=== PATIENT | male | born 1970 | race Caucasian/White ===

== ENCOUNTER 2019-07-25 22:56 | Inpatient (IN) | payer SELFPAY ==
[2019-07-25] MEDS ORDERED: LORAZEPAM INJ 2 MG/1 ML VIAL IV ONE (23:42)
[2019-07-25 23:48] LABS: ABSOLUTE LYMPHOCYTES (AUTO) 0.3 10^3/uL (0.5-4.7); ABSOLUTE MONOCYTES (AUTO) 0.3 10^3/uL (0.1-1.4); ABSOLUTE NEUT (AUTO) 4.1 10^3/uL (1.7-8.2); BASOPHILS % (AUTO) 0.5 % (0-2); EOSINOPHILS % (AUTO) 0.1 % (0-6); HEMOGLOBIN 15.3 g/dL (13.5-17.0); LYMPHOCYTES % (AUTO) 5.4 % (13-45); MEAN CORPUSCULAR HEMOGLOBIN 34.7 pg (27.0-33.4); MEAN CORPUSCULAR HGB CONC 34.7 g/dL (32.0-36.0); MEAN CORPUSCULAR VOLUME 100 fl (80-97); MONOCYTES % (AUTO) 7.1 % (3-13); PLATELET COUNT 106 10^3/uL (150-450); RED BLOOD COUNT 4.41 10^6/uL (4.35-5.55); SEGMENTED NEUTROPHILS % (AUTO) 86.9 % (42-78); TOTAL CELLS COUNTED % (AUTO) 100 %; WHITE BLOOD COUNT 4.7 10^3/uL (4.0-10.5)
[2019-07-25] MEDS ORDERED: DIAZEPAM INJ 10 MG/2 ML DISP.SYRIN IV ONE (23:55)
[2019-07-25] MEDS ORDERED: NORMAL SALINE 1000 ML 1,000 ML IV ONE (23:56)
[2019-07-26 00:22] LABS: ALCOHOL 31 mg/dL (NONE DETECTED); ALKALINE PHOSPHATASE 78 U/L (38-126); ASPARTATE AMINO TRANSFERASE 341 U/L (17-59); BILIRUBIN,DIRECT 0.7 mg/dL (0.0-0.4); BLOOD UREA NITROGEN 10 mg/dL (7-20); CALCIUM 9.3 mg/dL (8.4-10.2); CREATINE KINASE 666 U/L (55-170); GLUCOSE 129 mg/dL (75-110); POTASSIUM 4.4 mmol/L (3.6-5.0); TOTAL PROTEIN 8.6 g/dL (6.3-8.2)
[2019-07-26 00:26] LABS: CARBON DIOXIDE 17 mmol/L (22-30); CHLORIDE 101 mmol/L (98-107)
[2019-07-26 00:32] LABS: CREATINE KINASE MB 2.32 ng/mL (<4.55)
[2019-07-26 00:36] LABS: ANION GAP 20 (5-19)
[2019-07-26 00:37] LABS: TROPONIN I < 0.012 ng/mL
[2019-07-26] MEDS ORDERED: DIAZEPAM INJ 10 MG/2 ML DISP.SYRIN IV ONE ×2 (01:01→02:38)
--- NOTE | 2019-07-26 01:20 | ER Document Report ---
Entered by AMOR PEREZ SCRIBE 07/25/19 3096 Acting as scribe for:ZANDER TENORIO IV, MD ED Seizure - General Chief Complaint: alcohol withdrawl/seizure Stated Complaint: POSSIBLE SEIUZRE Mode of Arrival: Medic Information source: Emergency Med Personnel Notes: This 48 year old male patient brought in by EMS presents to the ED today with complaints of a possible seizure witnessed by family just prior to arrival. EMS reports that the patient was sitting at the table with his family when he had what appeared to be a "full body" seizure that lasted approximately x45 seconds. Denies history of seizures in the past. Per EMS, patient's family reports that the patient has a history of chronic alcoholism and has been trying to drink less (instead of 1 bottle of Rum qd to x2-3 cups), last drink x4 hours prior to arrival. Patient has extensive bruising to his abdomen and hand which is r eportedly self-inflicted when he is intoxicated per family. ED nurse reports that she witness the patient having another seizure that lasted approximately x2 minutes shortly after his arrival to the ED. She notes positive tongue bite and states that the patient was alert and oriented prior to the seizure. She also states that the patient complained of substernal chest pain just prior to the seizure here. - Related Data Allergies/Adverse Reactions: No Known Allergies Allergy (Unverified 07/26/19 01:07) Past Medical History - General Information source: [facility] Records - Social History Smoking Status: Never Smoker Cigarette use (# per day): No Chew tobacco use (# tins/day): No Smoking Education Provided: No Frequency of alcohol use: Heavy Drug Abuse: None Lives with: Family Family History: Reviewed & Not Pertinent Patient has suicidal ideation: No Patient has homicidal ideation: No Review of Systems - Review of Systems -: Yes ROS unobtainable due to patient's medical condition Physical Exam - Vital signs Vitals: Resp Pulse Ox 31 H 97 07/25/19 23:10 07/25/19 23:10 - General General appearance: Other - Somnolent - HEENT Head: Normocephalic, Atraumatic Eyes: Normal Pupils: PERRL Mouth/Lips: Other - Hematoma under right anterior aspect of tongue. No evidence of any other dental trauma Pharynx: Other - Blood in oropharynx - Respiratory Respiratory status: No respiratory distress Chest status: Nontender Breath sounds: Normal Chest palpation: Normal - Cardiovascular Rhythm: Regular, Tachycardia Heart sounds: Normal auscultation Murmur: No Friction rub: No Gallop: None auscultated - Abdominal Inspection: Other - Subacute ecchymosis to abdomen Distension: No distension Bowel sounds: Normal Tenderness: Nontender - Abdomen soft Organomegaly: No organomegaly - Back Back: Normal, Nontender - Extremities General upper extremity: Other - Subacute ecchymosis to RUE General lower extremity: Normal inspection - Neurological Neuro grossly intact: Yes - Psychological Associated symptoms: Other - Unable to assess due to patient's medical condition - Skin Skin irregularity: other - Subacute ecchymosis to RUE and abdomen Course - Vital Signs Vital signs: Temp Pulse Resp BP Pulse Ox 98.7 F 122 H 20 156/115 H 95 07/25/19 23:23 07/25/19 23:23 07/26/19 03:43 07/26/19 03:43 07/26/19 03:31 - Laboratory Result Diagrams: 07/25/19 23:29 07/25/19 23:29 Laboratory results interpreted by me: 07/25/19 07/25/19 07/26/19 23:29 23:29 01:35 MCV 100 H MCH 34.7 H RDW 19.0 H Plt Count 106 L Lymph % (Auto) 5.4 L Absolute Lymphs (auto) 0.3 L Seg Neutrophils % 86.9 H Carbon Dioxide 17 L Anion Gap 20 H Glucose 129 H Magnesium 1.5 L Total Bilirubin 2.0 H Direct Bilirubin 0.7 H AST 341 H ALT 97 H Creatine Kinase 666 H Total Protein 8.6 H Urine Protein >=500 H Urine Ketones 20 H Urine Blood LARGE H - Consults dr. cabrera Time consulted: 04:00 - dr. cabrera agreed to admit pt to IMCU Reason for consultation: 07/26/19 04:15 acute alcohol withdrawal Discharge - Discharge Clinical Impression: Alcohol withdrawal seizure Condition: Good Disposition: ADMITTED INPATIENT Admitting Provider: Alpesh (Hospitalist) Unit Admitted: IMCU I personally performed the services described in the documentation, reviewed and edited the documentation which was dictated to the scribe in my presence, and it accurately records my words and actions.
--- NOTE | 2019-07-26 01:49 | RADIOLOGY REPORT (SQ) ---
AP Portable chest: 07/26/2019 12:47 AM CDT History: 48-year old patient with altered mental status. Comparison: None available Findings: The cardiomediastinal silhouette is normal in size. No pneumothorax is seen. No acute airspace opacities are seen. No discrete pleural effusion is apparent. There is elevation of the right hemidiaphragm. Impression: No acute airspace opacities are seen.
--- NOTE | 2019-07-26 02:18 | RADIOLOGY REPORT (SQ) ---
CT ABDOMEN AND PELVIS WITH INTRAVENOUS CONTRAST: 07/26/2019 1:16 AM CDT HISTORY: 48-year old with abdominal trauma, seizures. COMPARISON: None available TECHNIQUE: Axial contiguous images were obtained from the lung bases to the proximal femurs with intravenous intravenous contrast administered. Sagittal and coronal reconstructions were also obtained and reviewed. This exam was performed according to our departmental dose-optimization program, which includes automated exposure control, adjustment of the mA and/or KV according to the patient's size and/or use of iterative reconstruction technique. FINDINGS: No focal consolidative airspace opacities are seen. No discrete pleural effusion is seen. The visualized hepatic parenchyma is diffusely low in attenuation.. No focal enhancing lesion is seen. The gallbladder demonstrates no evidence of calcified gallstones The spleen, pancreas, and adrenals are normal in size and contour. The kidneys demonstrate no evidence of hydronephrosis. Bladder is minimally distended, but grossly appears unremarkable. The stomach is not well distended. The small bowel loops appear unremarkable. No pericolonic inflammatory stranding is seen. There are multiple diverticula seen within the sigmoid and descending colon, without evidence to suggest diverticulitis. The appendix is not visualized. There is no evidence of pneumoperitoneum or free fluid. The aorta and IVC appear normal in size. No significantly enlarged lymph nodes are seen in the abdomen or pelvis. Review of the bone show no evidence of any suspicious lytic or blastic lesions. IMPRESSION: No acute process is seen within the abdomen or pelvis. Hepatic steatosis
[2019-07-26 02:29] LABS: APPEARANCE,URINE CLEAR; BILIRUBIN,URINE NEGATIVE (NEGATIVE); COLOR,URINE YELLOW; GLUCOSE, URINE NEGATIVE (NEGATIVE); KETONES,URINE 20 mg/dL (NEGATIVE); LEUKOCYTE ESTERASE,URINE NEGATIVE (NEGATIVE); NITRITE,URINE NEGATIVE (NEGATIVE); PROTEIN,URINE >=500 mg/dL (NEGATIVE); URINE SPECIFIC GRAVITY 1.022; UROBILINOGEN,URINE NEGATIVE mg/dL (<2.0)
--- NOTE | 2019-07-26 02:32 | RADIOLOGY REPORT (SQ) ---
CT of the head: 07/26/2019 1:30 AM CDT HISTORY: 48-year-old patient with a headache. COMPARISON: None available TECHNIQUE: Multiple axial contiguous images were obtained through the head without intravenous contrast administered. This exam was performed according to our departmental dose-optimization program, which includes automated exposure control, adjustment of the mA and/or KV according to the patient's size and/or use of iterative reconstruction technique. FINDINGS: The ventricles are within normal limits for size. Both orbits appear unremarkable. The mastoid air cells appear clear. There is mild mucoperiosteal thickening of the ethmoid and maxillary sinuses. The calvarium is intact. No extra-axial fluid collection is seen. The guerra-white matter differentiation is within normal limits. No midline shift or mass effect is apparent. There are no findings to suggest acute intracranial hemorrhage. IMPRESSION: No acute intracranial hemorrhage is seen.
--- NOTE | 2019-07-26 02:38 | RADIOLOGY REPORT (SQ) ---
CT CERVICAL SPINE: 07/26/2019 1:36 AM CDT TECHNIQUE: Axial contiguous images were obtained through the cervical spine without intravenous contrast. Sagittal and coronal reconstructions were also reviewed. This exam was performed according to our departmental dose-optimization program, which includes automated exposure control, adjustment of the mA and/or KV according to the patient's size and/or use of iterative reconstruction technique. COMPARISON: None available INDICATION: 48-year old patient with neck pain . FINDINGS: Multilevel anterior also fracture seen at the cervical spine. There is mild to moderate facet hypertrophy noted. The vertebral bodies appear well aligned. The vertebral body heights appear well maintained. No significant pre-vertebral soft tissue swelling is noted. No definite fracture or subluxation is noted. No significant intervertebral disc space narrowing is seen. The visualized brain parenchyma appears unremarkable. The craniocervical junction is unremarkable. IMPRESSION: There are no findings to suggest an acute fracture or subluxation within the cervical spine.
[2019-07-26 02:45] LABS: URINE AMPHETAMINES SCREEN NEGATIVE; URINE BARBITURATES SCREEN NEGATIVE; URINE BENZODIAZEPINES SCREEN NEGATIVE; URINE COCAINE SCREEN NEGATIVE; URINE METHADONE SCREEN NEGATIVE; URINE PHENCYCLIDINE SCREEN NEGATIVE
[2019-07-26 02:48] LABS: URINE MARIJUANA (THC) SCREEN UNCONFIRMED POSITIVE
[2019-07-26] MEDS ORDERED: MAG HYDROX/AL HYDROX/SIMETH SUSP 30 ML UDCUP PO PRN (05:09)
[2019-07-26] MEDS ORDERED: LEVALBUTEROL HCL NEB 0.63 MG/3 ML AMPUL NEB PRN (05:09)
[2019-07-26] MEDS ORDERED: MAGNESIUM HYDROXIDE SUSP 30 ML UDCUP PO PRN (05:09)
[2019-07-26] MEDS ORDERED: MORPHINE SULFATE 10 MG/ML INJ IV PRN ×2 (05:14→10:59)
[2019-07-26] MEDS ORDERED: NICOTINE 21 MG/24 HR PATCH.TD24 TD PRN (05:14)
[2019-07-26] MEDS ORDERED: ACETAMINOPHEN 325 MG TABLET PO PRN (05:14)
[2019-07-26] MEDS ORDERED: CHLORPROMAZINE HCL INJ 25 MG/1 ML AMPULE IV PRN (05:14)
[2019-07-26] MEDS ORDERED: GUAIFENESIN SYRP 200 MG/10 ML UDC PO PRN (05:14)
[2019-07-26] MEDS ORDERED: DIAZEPAM 5 MG TABLET PO PRN (05:16)
[2019-07-26] MEDS ORDERED: HEPARIN SOD (PORCINE) 5,000 UNIT/ML 1 ML VIAL SUBCUT SCH (06:00)
[2019-07-26] MEDS: ATENOLOL 50 MG TABLET PO SCH ×2 (06:03→21:30)
[2019-07-26] MEDS: RINGERS SOLUTION,LACTATED 1,000 ML IV PRN ×3 (06:04→18:17)
[2019-07-26] MEDS: DIAZEPAM INJ 10 MG/2 ML DISP.SYRIN IV PRN ×5 (06:05→15:07)
--- NOTE | 2019-07-26 06:09 | PDOC H&P ---
History of Present Illness Admission Date/PCP: 07/26/19 04:25 No local PCP Patient complains of: Seizures History of Present Illness: EVIE SEGURA is a 48 year old male presented to the emergency room via EMS with acute tonic-clonic seizures. Patient is aware that he had a seizure but does no t remember the seizure activity only waking up with a sore tongue and feeling tremulous. He reports that he has a long history of alcoholism and has been trying to cut back on his drinking. He denies prior similar symptoms. He denies other associated or accompanying signs and symptoms. He was witnessed to have a full body tonic-clonic seizure that lasted 45 to 60 seconds at home prior to his family summoning EMS. He has not identified any additional aggravating or ameliorating factors for his seizures. Patient had another seizure lasting less than 2 minutes in the emergency room that was witnessed by physician and nursing staff. Patient seizures have been well controlled by intravenous Valium. Patient was subsequently admitted to the hospital for further evaluation and treatment. Past Medical History Cardiac Medical History: Denies: Coronary Artery Disease, Hypertension Pulmonary Medical History: Denies: Asthma, Chronic Obstructive Pulmonary Disease (COPD) EENT Medical History: Denies: Cataracts, Ears - Hearing aids Neurological Medical History: Denies: Multiple Sclerosis, Seizures Endocrine Medical History: Denies: Diabetes Mellitus Type 1, Diabetes Mellitus Type 2 Renal/ Medical History: Denies: Chronic Kidney Disease, Nephrolithiasis Malignancy Medical History: Reports: None GI Medical History: Denies: Cirrhosis, Hepatitis Musculoskeltal Medical History: Denies: Arthritis, Gout Skin Medical History: Denies: Eczema, Psoriasis Psychiatric Medical History: Reports: Alcohol Dependency Denies: Substance Abuse, Tobacco Dependency Traumatic Medical History: Reports: None Hematology: Denies: Anemia, Bleeding Tendencies Infectious Medical History: Reports: None Past Surgical History Past Surgical History: Reports: Herniorrhaphy - Right inguinal Social History Information Source: Relative Lives with: Family Smoking Status: Never Smoker Electronic Cigarette use?: No Frequency of Alcohol Use: Heavy - Usually drinks 1 quart of rum per day recently has cut down to 1 or 2 cups of rum per day Hx Recreational Drug Use: No Drugs: None Hx Prescription Drug Abuse: No Family History Family History: CAD, Hypertension. denies: DM, Malignancy Family History: Due to the patient's delirium historical data for the past medical history, past surgical history, social history and family medical history are obtained from the best available reliable source. Parental Family History Reviewed: No Children Family History Reviewed: NA Sibling(s) Family History Reviewed.: NA Medication/Allergy Allergies/Adverse Reactions: No Known Allergies Allergy (Unverified 07/26/19 01:07) Review of Systems Constitutional: ABSENT: chills, fever(s) Eyes: ABSENT: visual disturbances, other - Eye pain Ears: ABSENT: hearing changes, other - Ear pain Nose, Mouth, and Throat: PRESENT: mouth pain - Tongue pain after seizure activity. ABSENT: headache(s) Cardiovascular: ABSENT: chest pain, palpitations Respiratory: ABSENT: cough, dyspnea Gastrointestinal: ABSENT: abdominal pain, constipation, diarrhea, nausea, vomiting Genitourinary: ABSENT: dysuria, hematuria Integumentary: ABSENT: pruritus, rash Neurological: PRESENT: as per HPI, convulsions. ABSENT: confusion, focal weakness, memory loss, syncope Psychiatric: ABSENT: anxiety, depression Endocrine: ABSENT: cold intolerance, heat intolerance Hematologic/Lymphatic: ABSENT: easy bleeding, easy bruising Allergic/Immunologic: ABSENT: seasonal rhinorrhea Physical Exam Vital Signs: Temp Pulse Resp BP Pulse Ox 98.7 F 122 H 20 156/115 H 95 07/25/19 23:23 07/25/19 23:23 07/26/19 03:43 07/26/19 03:43 07/26/19 03:31 Intake & Output 07/24/19 07/25/19 07/26/19 23:59 23:59 23:59 Intake Total 1000 Balance 1000 Weight 102.058 kg General appearance: PRESENT: no acute distress, disheveled, other - Tremulous Head exam: PRESENT: atraumatic, normocephalic Eye exam: PRESENT: conjunctiva pink. ABSENT: conjunctival injection, scleral icterus Ear exam: PRESENT: normal external ear exam. ABSENT: bleeding, drainage Mouth exam: PRESENT: dry mucosa, neck supple, tongue midline. ABSENT: other - Multiple abrasions of the tongue noted Neck exam: ABSENT: thyromegaly, tracheal deviation Respiratory exam: PRESENT: clear to auscultation karey, symmetrical, unlabored Cardiovascular exam: PRESENT: RRR. ABSENT: clicks, gallop, rubs Pulses: PRESENT: normal radial pulses, normal dorsalis pedis pul Vascular exam: PRESENT: normal capillary refill. ABSENT: pallor GI/Abdominal exam: PRESENT: normal bowel sounds, soft Rectal exam: PRESENT: deferred Extremities exam: ABSENT: joint swelling, pedal edema Musculoskeletal exam: ABSENT: deformity, dislocation Neurological exam: PRESENT: alert, oriented to person, oriented to place, oriented to time, oriented to situation, CN II-XII grossly intact, other - Tremulous. ABSENT: motor sensory deficit Psychiatric exam: PRESENT: flat affect, normal mood Skin exam: PRESENT: dry, intact, warm, other - Multiple ecchymoses of the bilateral upper and lower extremities are noted.. ABSENT: jaundice, rash, urticaria Results Laboratory Results: 07/25/19 23:29 07/25/19 23:29 07/25/19 07/25/19 07/26/19 23:29 23:29 01:35 WBC 4.7 RBC 4.41 Hgb 15.3 Hct 44.0 MCV 100 H MCH 34.7 H MCHC 34.7 RDW 19.0 H Plt Count 106 L Seg Neutrophils % 86.9 H Sodium 137.5 Potassium 4.4 Chloride 101 Carbon Dioxide 17 L Anion Gap 20 H BUN 10 Creatinine 0.92 Est GFR ( Amer) > 60 Glucose 129 H Calcium 9.3 Magnesium 1.5 L Total Bilirubin 2.0 H AST 341 H Alkaline Phosphatase 78 Total Protein 8.6 H Albumin 5.0 Urine Color YELLOW Urine Appearance CLEAR Urine pH 5.0 Ur Specific [place] 1.022 Urine Protein >=500 H Urine Glucose (UA) NEGATIVE Urine Ketones 20 H Urine Blood LARGE H Urine Nitrite NEGATIVE Ur Leukocyte Esterase NEGATIVE Urine WBC (Auto) 1 Urine RBC (Auto) 6 07/25/19 07/25/19 07/26/19 23:29 23:29 02:32 Creatine Kinase 666 H CK-MB (CK-2) 2.32 Troponin I < 0.012 0.031 Impressions: Head CT 07/26/19 00:39 IMPRESSION: No acute intracranial hemorrhage is seen. Cervical Spine CT 07/26/19 00:40 IMPRESSION: There are no findings to suggest an acute fracture or subluxation within the cervical spine. Abdomen/Pelvis CT 07/26/19 00:41 IMPRESSION: No acute process is seen within the abdomen or pelvis. Hepatic steatosis Assessment and Plan - Diagnosis (1) Alcohol withdrawal delirium, acute, hypoactive Is this a current diagnosis for this admission?: Yes (2) Alcohol withdrawal seizure Qualifiers: Complication of substance-induced condition: with delirium Qualified Code(s): F10.231 - Alcohol dependence with withdrawal delirium Is this a current diagnosis for this admission?: Yes (3) Alcoholic hepatitis Qualifiers: Ascites presence: unspecified Qualified Code(s): K70.10 - Alcoholic hepatitis without ascites Is this a current diagnosis for this admission?: Yes (4) Abrasion of tongue Qualifiers: Encounter type: initial encounter Qualified Code(s): S00.512A - Abrasion of oral cavity, initial encounter Is this a current diagnosis for this admission?: Yes - Plan Summary Summary: Patient will be admitted to the medical floor he will receive routine supportive and symptomatic cares. He will receive Valium 10 mg IV every hour as needed for control of seizures and/or severe tremors. He will be given Valium 10 mg p.o. every 4 hours on a scheduled basis. He will receive morphine sulfate 2 to 4 mg IV every 2 hours as needed for pain using a sliding scale for dosing. He will receive a regular diet as tolerated. CBCs, metabolic profiles, magnesium levels, liver function studies and other laboratory and/or radiographic studies will be obtained as needed. - Time Time Spent with patient: Less than 15 minutes Anticipated discharge: Home - Inpatient Certification Based on my medical assessment, after consideration of the patient's comorbidities, presenting symptoms, or acuity I expect that the services needed warrant INPATIENT care.: Yes I certify that my determination is in accordance with my understanding of Medicare's requirements for reasonable and necessary INPATIENT services [42 CFR 412.3e].: Yes Medical Necessity: Need Close Monitoring Due to Risk of Patient Decompensation, Need For IV Fluids, Need for Neurological Checks
--- NOTE | 2019-07-26 06:22 | EKG REPORT ---
SEVERITY:- NORMAL ECG - SINUS RHYTHM : Confirmed by: Azeem Acharya MD 26-Jul-2019 06:21:35
[2019-07-26] MEDS: HYDRALAZINE HCL INJ/PF 20 MG/1 ML SDV IV PRN (08:25)
[2019-07-26] MEDS: FAMOTIDINE 20 MG TABLET PO SCH ×2 (09:56→21:30)
[2019-07-26] MEDS: DOCUSATE SODIUM 100 MG CAPSULE PO SCH ×2 (09:57→17:21)
[2019-07-26] MEDS ORDERED: ONDANSETRON 4 MG TAB.RAPDIS PO PRN (17:44)
[2019-07-26] MEDS ORDERED: ONDANSETRON HCL INJ/PF 4 MG/2 ML SDV IV PRN (17:44)
[2019-07-26] MEDS ORDERED: ONDANSETRON HCL INJ/PF 4 MG/2 ML SDV ONE (17:45)
[2019-07-26] MEDS ORDERED: DEXTROSE 40% GEL 15 GM TUBE PO PRN ×2 (17:47)
[2019-07-26] MEDS ORDERED: DEXTROSE 50%-WATER 25 GM/50 ML DISP.SYRIN IV PRN ×2 (17:47)
[2019-07-26] MEDS ORDERED: GLUCAGON,HUMAN RECOMB 1 MG INJ IM PRN (17:47)
[2019-07-26] MEDS: LORAZEPAM INJ 2 MG/1 ML VIAL IV PRN ×2 (18:16→21:31)
[2019-07-26] MEDS: LORAZEPAM 1 MG TABLET PO SCH (18:17)
[2019-07-27] MEDS: INSULIN LISPRO 100 UNIT/ML 3 ML VIAL SUBCUT SCH ×4 (00:28→16:53)
[2019-07-27] MEDS: LORAZEPAM 1 MG TABLET PO SCH (01:05)
[2019-07-27] MEDS: LORAZEPAM INJ 2 MG/1 ML VIAL IV PRN ×2 (01:15→03:15)
[2019-07-27] MEDS: DIAZEPAM INJ 10 MG/2 ML DISP.SYRIN IV PRN ×4 (04:12→14:54)
[2019-07-27] MEDS: DIAZEPAM 5 MG TABLET PO SCH ×2 (05:00→11:37)
[2019-07-27] MEDS: RINGERS SOLUTION,LACTATED 1,000 ML IV PRN (05:24)
[2019-07-27 08:03] LABS: MEAN CORPUSCULAR HEMOGLOBIN 35.9 pg (27.0-33.4); MEAN CORPUSCULAR HGB CONC 35.8 g/dL (32.0-36.0); MEAN CORPUSCULAR VOLUME 100 fl (80-97); RED BLOOD COUNT 3.89 10^6/uL (4.35-5.55); RED CELL DISTRIBUTION WIDTH 18.7 % (11.5-14.0); WHITE BLOOD COUNT 7.1 10^3/uL (4.0-10.5)
[2019-07-27 08:17] LABS: ALBUMIN 4.1 g/dL (3.5-5.0); ALKALINE PHOSPHATASE 56 U/L (38-126); ANION GAP 12 (5-19); ASPARTATE AMINO TRANSFERASE 324 U/L (17-59); BILIRUBIN,DIRECT 0.8 mg/dL (0.0-0.4); BILIRUBIN,TOTAL 2.4 mg/dL (0.2-1.3); BLOOD UREA NITROGEN 14 mg/dL (7-20); CALCIUM 8.9 mg/dL (8.4-10.2); CARBON DIOXIDE 21 mmol/L (22-30); CHLORIDE 106 mmol/L (98-107); GLUCOSE 70 mg/dL (75-110); POTASSIUM 3.7 mmol/L (3.6-5.0); TOTAL PROTEIN 7.2 g/dL (6.3-8.2)
[2019-07-27 08:34] LABS: PLATELET COUNT 81 10^3/uL (150-450)
[2019-07-27] MEDS ORDERED: DIAZEPAM INJ 10 MG/2 ML DISP.SYRIN IV PRN ×2 (09:49)
[2019-07-27] MEDS ORDERED: ENOXAPARIN SODIUM INJ 30 MG/0.3 ML DISP.SYRIN SUBCUT SCH ×2 (10:00)
[2019-07-27] MEDS: DOCUSATE SODIUM 100 MG CAPSULE PO SCH (10:35)
[2019-07-27] MEDS: FAMOTIDINE 20 MG TABLET PO SCH (11:37)
[2019-07-27] MEDS: ATENOLOL 50 MG TABLET PO SCH ×2 (11:37→23:15)
[2019-07-27] MEDS: ENOXAPARIN SODIUM INJ 40 MG/0.4 ML DISP.SYRIN SUBCUT SCH (11:37)
--- NOTE | 2019-07-27 13:28 | PDOC PROGRESS REPORT ---
Subjective Progress Note for:: 07/27/19 Subjective:: Patient is a 48-year-old male with a past medical history significant for alcohol dependence who was admitted 07/26/2023 witnessed tonic-clonic seizures (by EMS and ED personnel) related to rapid reduction in his daily alcohol intake. At baseline, patient drinks 1 bottle of rum daily and over the last several days it had reduced to 2 to 3 cups only with the last drink approximately 4 hours prior to his arrival. EtOH on admission was 31. Patient was seen on morning rounds. He was found resting in bed, in restraints, on room air. He is oriented to self, year and president, but unable to accurately state location or discuss situation. He tells me that he needs to get dressed but that his clothes are out in a car. Answers all other questions incoherently. He has intermittent periods of agitation. CIWA scores consistently above 30 despite having received 70 mg of Valium, 4 mg of morphine, 3 mg of Ativan over the prior 24 hours. ROS is limited due to current mentation. Patient's clinical status and plan of care reviewed in detail with nursing. I have consulted the commercial real estate assistant service for admission to the ICU. Reason For Visit: ACUTE ALCOHOL WITHDRAWAL WITH DELIRIUM,ALCOHOL Physical Exam Vital Signs: Temp Pulse Resp BP Pulse Ox 101.0 F H 101 H 18 150/88 H 98 07/27/19 07:35 07/27/19 07:35 07/27/19 07:35 07/27/19 07:35 07/27/19 07:35 Intake & Output 07/26/19 07/27/19 07/28/19 06:59 06:59 06:59 Intake Total 1000 4371 1000 Output Total 0 Balance 1000 4371 1000 Weight 107.9 kg 104.5 kg General appearance: PRESENT: disheveled, mild distress, obese, well-developed, well-nourished Head exam: PRESENT: atraumatic, normocephalic Eye exam: PRESENT: conjunctiva pink, EOMI, PERRLA. ABSENT: scleral icterus Mouth exam: PRESENT: moist, tongue midline Neck exam: ABSENT: carotid bruit, JVD, lymphadenopathy, thyromegaly Respiratory exam: PRESENT: clear to auscultation karey, symmetrical, unlabored. ABSENT: rales, rhonchi, wheezes Cardiovascular exam: PRESENT: RRR, +S1, +S2, tachycardia. ABSENT: diastolic murmur, rubs, systolic murmur Vascular exam: PRESENT: normal capillary refill Gentrourinary exam: PRESENT: indwelling catheter Extremities exam: PRESENT: full ROM - Moves all extremities spontaneously. ABSENT: calf tenderness, clubbing, pedal edema Neurological exam: PRESENT: alert, awake, oriented to person, oriented to time, CN II-XII grossly intact. ABSENT: oriented to place, oriented to situation, motor sensory deficit Psychiatric exam: PRESENT: agitated, anxious. ABSENT: homicidal ideation, suicidal ideation Skin exam: PRESENT: intact, warm, other - Diaphoretic. ABSENT: cyanosis, rash Results Laboratory Results: 07/27/19 07:40 07/27/19 07:40 07/27/19 07/27/19 07:40 07:40 WBC 7.1 RBC 3.89 L Hgb 14.0 Hct 39.0 MCV 100 H MCH 35.9 H MCHC 35.8 RDW 18.7 H Plt Count 81 L Sodium 139.4 Potassium 3.7 Chloride 106 Carbon Dioxide 21 L Anion Gap 12 BUN 14 Creatinine 0.97 Est GFR ( Amer) > 60 Glucose 70 L Calcium 8.9 Magnesium 1.7 Total Bilirubin 2.4 H AST 324 H Alkaline Phosphatase 56 Total Protein 7.2 Albumin 4.1 07/25/19 07/25/19 07/26/19 23:29 23:29 02:32 Creatine Kinase 666 H CK-MB (CK-2) 2.32 Troponin I < 0.012 0.031 Impressions: Head CT 07/26/19 00:39 IMPRESSION: No acute intracranial hemorrhage is seen. Cervical Spine CT 07/26/19 00:40 IMPRESSION: There are no findings to suggest an acute fracture or subluxation within the cervical spine. Abdomen/Pelvis CT 07/26/19 00:41 IMPRESSION: No acute process is seen within the abdomen or pelvis. Hepatic steatosis Assessment and Plan - Diagnosis (1) Alcohol withdrawal seizure Qualifiers: Complication of substance-induced condition: with delirium Qualified Code(s): F10.231 - Alcohol dependence with withdrawal delirium Is this a current diagnosis for this admission?: Yes Plan: Patient is currently oriented to self and year only; intermittent periods of worsened confusion, hallucinations, and agitation. CIWA score consistently above 30 despite generous benzodiazepines. Continue IV Valium; sliding scale per CIWA score. IV banana bag daily. Twice daily Protonix. Seizure, fall, aspiration precautions. I have consulted the commercial real estate assistant service for transfer to ICU. (2) Alcoholic hepatitis Qualifiers: Ascites presence: unspecified Qualified Code(s): K70.10 - Alcoholic hepat itis without ascites Is this a current diagnosis for this admission?: Yes Plan: Management of alcohol withdrawal/dependence as above. Ensure patient remains adequately hydrated. Trend LFTs. [employer] cessation once mentation improves. (3) Abrasion of tongue Qualifiers: Encounter type: initial encounter Qualified Code(s): S00.512A - Abrasion of oral cavity, initial encounter Is this a current diagnosis for this admission?: Yes Plan: Secondary to seizure activity. (4) Fever Is this a current diagnosis for this admission?: Yes Plan: Likely related to acute alcohol withdrawal. No clear source of infectious process at this time; lung sounds clear, urinalysis negative, WBC is normal. Continue to monitor for indications of infection. Tylenol as needed. Management of alcohol withdrawal as above. (5) Substance abuse Is this a current diagnosis for this admission?: Yes Plan: THC positive on UDS. We will be prudent to discuss cessation once clinical condition improves. - Plan Summary Summary:
[2019-07-27] MEDS ORDERED: PHENOBARBITAL INJ 65 MG/ML VIAL IV PRN ×2 (15:57→15:59)
[2019-07-27] MEDS ORDERED: MIDAZOLAM 2 MG/2 ML INJ IV PRN (16:02)
--- NOTE | 2019-07-27 16:26 | CRITICAL CARE ADMISSION REPORT ---
HPI Date:: 07/27/19 Time:: 12:04 Reason for ICU Reason:: alcohol withdrawal; seizures HPI: This 48-year-old male non-smoker is seen in consultation at the [facility] t of Dr. Risa Muhammad for recommendations on further evaluation and management of alcohol withdrawal and seizures. The patient presented to the emergency room with generalized tonic-clonic seizures x2 days, according to his . The patient's reports that the patient had his at last alcoholic drink on Friday. On the Friday, she reported observing seizure-like activity, which she saw again on Friday the following day, prompting presentation to the emergency department. The patient was started on [place] protocol and admitted to a general floor bed. Dr. Muhammad requested consultation for consideration of Precedex infusion. At the time of clinical interview, the patient is agitated. He is verbally redirectable. He is awake, alert and oriented time and person. He initially is confused about his physical location but is able to figure out that he is at [facility] in [place], [place]. He does not recall specific events leading up to his hospitalization; however, he reports that he remembers waking up to a whole team of field education coordinator "beating him up". He admits to a long history of alcohol consumption. He admits that the recent COVID crisis and his lack of employment for the past 6 months have resulted in increased alcohol consumption. He estimates that he drinks 1/5 of rum and 1/5 of whiskey every day. While he states that he does not plan to completely abstain from alcohol consumption, he readily admits that he needs to cut back. He reports that he has a long history of alcoholism and has been trying to cut back. Thus far during this hospitalization, the seizures have been well controlled by intravenous Valium. History obtained from:: Patient; floor nurse - Diagnosis/Plan (1) Delirium tremens Is this a current diagnosis for this admission?: Yes Plan: Transfer to ICU. As the patient has been unwilling to take p.o. meds thus far, will need to administer phenobarbital IV (requiring ICU status). Continue CIWA assessments. Phenobarbital for alcohol withdrawal: 130 mg IV q 30 min for CIWA 8-15 or 260 mg IV q 30 min for CIWA 16+. Precedex, as needed. (2) Alcohol withdrawal seizure Qualifiers: Complication of substance-induced condition: with delirium Qualified Code (s): F10.231 - Alcohol dependence with withdrawal delirium Is this a current diagnosis for this admission?: Yes Plan: Seizure precautions. He has been loaded with high doses of various benzodiazepines at this point. Monitor respiratory status in light of potential interaction with phenobarbital. (3) Thrombocytopenia Is this a current diagnosis for this admission?: Yes Plan: likely secondary to chronic alcoholic liver disease. (4) Macrocytosis without anemia Is this a current diagnosis for this admission?: Yes Plan: Check B12 and folate. Thiamine and folate supplementation. (5) Alcoholic hepatitis Qualifiers: Ascites presence: unspecified Qualified Code(s): K70.10 - Alcoholic hepatitis without ascites Is this a current diagnosis for this admission?: Yes Past Medical History Cardiac Medical History: Denies: Coronary Artery Disease, Hypertension Pulmonary Medical History: Denies: Asthma, Chronic Obstructive Pulmonary Disease (COPD) EENT Medical History: Denies: Cataracts, Ears - Hearing aids Neurological Medical History: Denies: Multiple Sclerosis, Seizures Endocrine Medical History: Denies: Diabetes Mellitus Type 1, Diabetes Mellitus Type 2 Renal/ Medical History: Denies: Chronic Kidney Disease, Nephrolithiasis Malignancy Medical History: Reports: None GI Medical History: Denies: Cirrhosis, Hepatitis Musculoskeltal Medical History: Denies: Arthritis, Gout Skin Medical History: Denies: Eczema, Psoriasis Psychiatric Medical History: Reports: Alcohol Dependency Denies: Depression, Substance Abuse, Tobacco Dependency Traumatic Medical History: Reports: None Hematology: Denies: Anemia, Bleeding Tendencies Infectious Medical History: Reports: None Past Surgical History Past Surgical History: Reports: Herniorrhaphy - Right inguinal, Other - No past surgical history is available Social/Family History - Social History Lives with: Family Smoking Status: Never Smoker Frequency of Alcohol Use: Heavy - Usually drinks 1 quart of rum per day recently has cut down to 1 or 2 cups of rum per day Hx Recreational Drug Use: No Drugs: None Hx Prescription Drug Abuse: No - Medication/Allergies Home Medications: Ibuprofen [Motrin 800 mg Tablet] 800 mg PO Q8HP PRN 07/26/19 Allergies/Adverse Reactions: No Known Allergies Allergy (Unverified 07/26/19 01:07) Review of Systems Constitutional: ABSENT: chills, fever(s), headache(s), weight gain, weight loss Eyes: ABSENT: visual disturbances Ears: ABSENT: hearing changes Cardiovascular: ABSENT: chest pain, dyspnea on exertion, edema, orthropnea, palpitations Respiratory: ABSENT: cough, hemoptysis Gastrointestinal: ABSENT: abdominal pain, constipation, diarrhea, hematemesis, hematochezia, nausea, vomiting Neurological: PRESENT: confusion. ABSENT: abnormal gait, abnormal speech, dizziness, focal weakness, syncope Psychiatric: ABSENT: anxiety, depression, homidical ideation, suicidal ideation Endocrine: ABSENT: cold intolerance, heat intolerance, polydipsia, polyuria Hematologic/Lymphatic: ABSENT: easy bleeding, easy bruising Physical Exam Vital Signs: Temp Pulse Resp BP Pulse Ox 101.0 F H 101 H 18 150/88 H 98 07/27/19 07:35 07/27/19 07:35 07/27/19 07:35 07/27/19 07:35 07/27/19 07:35 Intake & Output 07/26/19 07/27/19 07/28/19 06:59 06:59 06:59 Intake Total 1000 4371 1000 Output Total 0 Balance 1000 4371 1000 Weight 107.9 kg 104.5 kg Weight/Height Weight 104.5 kg Height 1.78 m General appearance: PRESENT: no acute distress, well-developed, well-nourished Head exam: PRESENT: atraumatic, normocephalic Eye exam: PRESENT: conjunctiva pink, EOMI, PERRLA. ABSENT: scleral icterus Mouth exam: PRESENT: moist, tongue midline Neck exam: ABSENT: carotid bruit, JVD, lymphadenopathy, thyromegaly Respiratory exam: PRESENT: clear to auscultation karey. ABSENT: rales, rhonchi, wheezes Cardiovascular exam: PRESENT: RRR. ABSENT: diastolic murmur, rubs, systolic murmur Vascular exam: PRESENT: normal capillary refill GI/Abdominal exam: PRESENT: normal bowel sounds, soft. ABSENT: distended, guarding, mass, organolmegaly, rebound, tenderness Extremities exam: PRESENT: full ROM. ABSENT: calf tenderness, clubbing, pedal edema Musculoskeletal exam: PRESENT: normal inspection. ABSENT: deformity Neurological exam: PRESENT: alert, awake, oriented to person, oriented to place, oriented to time, oriented to situation, CN II-XII grossly intact. ABSENT: motor sensory deficit Psychiatric exam: PRESENT: agitated, anxious Focused psych exam: PRESENT: delusional, psychomotor agitation. ABSENT: paranoid, pressured speech Skin exam: PRESENT: dry, intact, warm. ABSENT: cyanosis, rash Laboratory/Radiographs Laboratory Results: 07/27/19 07:40 07/27/19 07:40 07/27/19 07/27/19 07:40 07:40 WBC 7.1 RBC 3.89 L Hgb 14.0 Hct 39.0 MCV 100 H MCH 35.9 H MCHC 35.8 RDW 18.7 H Plt Count 81 L Sodium 139.4 Potassium 3.7 Chloride 106 Carbon Dioxide 21 L Anion Gap 12 BUN 14 Creatinine 0.97 Est GFR ( Amer) > 60 Glucose 70 L Calcium 8.9 Magnesium 1.7 Total Bilirubin 2.4 H AST 324 H Alkaline Phosphatase 56 Total Protein 7.2 Albumin 4.1 07/25/19 07/25/19 07/26/19 23:29 23:29 02:32 Creatine Kinase 666 H CK-MB (CK-2) 2.32 Troponin I < 0.012 0.031 Impressions: Head CT 07/26/19 00:39 IMPRESSION: No acute intracranial hemorrhage is seen. Cervical Spine CT 07/26/19 00:40 IMPRESSION: There are no findings to suggest an acute fracture or subluxation within the cervical spine. Abdomen/Pelvis CT 07/26/19 00:41 IMPRESSION: No acute process is seen within the abdomen or pelvis. Hepatic steatosis All labs, radiographs, diagnostic studies and EKGs were personally reviewed: Yes In addition, reports of radiographic and diagnostic studies were read: Yes Critical Time Critical Time (minutes): 60 -: The care of a critically ill patient is dynamic. This note represents a static moment in the admission process. Orders and treatments may be given simultaneously and urgently, and time is not dermatology sales representative of the treatment process. This patient requires Critical Care secondary to life threatening organ or limb dysfunction. Without Critical Care services, the patient is at risk for increased mortality and morbidity.
[2019-07-27] MEDS: DEXMEDETOMIDINE IN 0.9 % NACL 400 MCG/100 ML RTUPB IV PRN ×3 (16:44→22:45)
[2019-07-27] MEDS ORDERED: PHENOBARBITAL INJ 65 MG/ML VIAL ONE (16:49)
[2019-07-27] MEDS: PHENOBARBITAL INJ 65 MG/ML VIAL IV PRN ×3 (16:50→23:55)
[2019-07-27] MEDS: POTASSI CL 20 MEQ/D5NS 1L 20 MEQ/1,000 ML RTUINJ IV PRN (17:50)
[2019-07-27] MEDS ORDERED: MIDAZOLAM 2 MG/2 ML INJ ONE (19:51)
[2019-07-27] MEDS: NORMAL SALINE 1000 ML 1,000 ML with POTASSIUM CHLORIDE 20 MEQ, MAGNESIUM SULFATE 8 MEQ,... IV SCH ×5 (19:56)
[2019-07-27] MEDS: PANTOPRAZOLE SODIUM 40 MG VIAL IV SCH (23:14)
[2019-07-28] MEDS: PHENOBARBITAL INJ 65 MG/ML VIAL IV PRN ×7 (03:48→22:08)
[2019-07-28 04:36] LABS: HEMOGLOBIN 13.5 g/dL (13.5-17.0); MEAN CORPUSCULAR HEMOGLOBIN 35.2 pg (27.0-33.4); MEAN CORPUSCULAR HGB CONC 34.6 g/dL (32.0-36.0); MEAN CORPUSCULAR VOLUME 102 fl (80-97); RED BLOOD COUNT 3.83 10^6/uL (4.35-5.55); RED CELL DISTRIBUTION WIDTH 18.6 % (11.5-14.0)
[2019-07-28 04:40] LABS: ALBUMIN 3.9 g/dL (3.5-5.0); ALKALINE PHOSPHATASE 49 U/L (38-126); ASPARTATE AMINO TRANSFERASE 251 U/L (17-59); BILIRUBIN,DIRECT 0.7 mg/dL (0.0-0.4); BILIRUBIN,TOTAL 1.8 mg/dL (0.2-1.3); TOTAL PROTEIN 6.5 g/dL (6.3-8.2)
[2019-07-28 04:57] LABS: PLATELET COUNT 82 10^3/uL (150-450)
[2019-07-28] MEDS: HALOPERIDOL LACTATE INJ 5 MG/1 ML VIAL IV PRN ×3 (05:09→23:45)
[2019-07-28] MEDS: ATENOLOL 50 MG TABLET PO SCH ×2 (10:34→21:38)
[2019-07-28] MEDS: PANTOPRAZOLE SODIUM 40 MG VIAL IV SCH ×2 (10:38→21:38)
[2019-07-28] MEDS: ENOXAPARIN SODIUM INJ 40 MG/0.4 ML DISP.SYRIN SUBCUT SCH (10:43)
[2019-07-28] MEDS: DEXMEDETOMIDINE IN 0.9 % NACL 400 MCG/100 ML RTUPB IV PRN ×2 (11:01→23:50)
[2019-07-28] MEDS ORDERED: HALOPERIDOL LACTATE INJ 5 MG/1 ML VIAL IV ONE (11:30)
[2019-07-28] MEDS: POTASSI CL 20 MEQ/D5NS 1L 20 MEQ/1,000 ML RTUINJ IV PRN (16:15)
[2019-07-28] MEDS: NORMAL SALINE 1000 ML 1,000 ML with POTASSIUM CHLORIDE 20 MEQ, MAGNESIUM SULFATE 8 MEQ,... IV SCH ×5 (18:16)
[2019-07-29 04:27] LABS: HEMATOCRIT 37.7 % (37.9-51.0); HEMOGLOBIN 13.3 g/dL (13.5-17.0); MEAN CORPUSCULAR HEMOGLOBIN 36.1 pg (27.0-33.4); MEAN CORPUSCULAR HGB CONC 35.4 g/dL (32.0-36.0); MEAN CORPUSCULAR VOLUME 102 fl (80-97); PLATELET COUNT 100 10^3/uL (150-450); RED CELL DISTRIBUTION WIDTH 18.4 % (11.5-14.0); WHITE BLOOD COUNT 4.9 10^3/uL (4.0-10.5)
[2019-07-29 04:40] LABS: ALBUMIN 3.4 g/dL (3.5-5.0); ALKALINE PHOSPHATASE 53 U/L (38-126); ASPARTATE AMINO TRANSFERASE 243 U/L (17-59); BILIRUBIN,DIRECT 0.5 mg/dL (0.0-0.4); BILIRUBIN,TOTAL 1.4 mg/dL (0.2-1.3); TOTAL PROTEIN 5.9 g/dL (6.3-8.2)
[2019-07-29] MEDS: DEXMEDETOMIDINE IN 0.9 % NACL 400 MCG/100 ML RTUPB IV PRN ×2 (06:11→16:21)
[2019-07-29] MEDS: PHENOBARBITAL INJ 65 MG/ML VIAL IV PRN ×10 (06:15→22:47)
--- NOTE | 2019-07-29 07:19 | PDOC CRITICAL CARE PROG REPORT ---
General Date:: 07/28/19 ICU Day:: 2 Hospital Day:: 4 Resuscitation Status: Full Code Events in the past 12 to 24 Hours:: 07/24: Presented to the emergency department after having seizure activity at home. Family reported that the patient demonstrated brief generalized tonic- clonic seizure activity, suspected to be related to alcohol withdrawal. 07/25: Admitted to the hospitalist service to a medical floor bed. Placed on CIWA protocol. 07/26: Transferred to ICU. Started on Precedex and phenobarbital. 07/27: Has received a total of 4 doses of phenobarbital thus far. Precedex is off. Nursing staff reports that the patient had a bout of agitation overnight, which was treated with Haldol. Currently, sleeping soundly. Review of systems relevant to events:: Neurologic: Delirium tremens, alcohol withdrawal seizures Reason for ICU Addmission:: alcohol withdrawal; seizures - Medications: Medications reviewed and adjusted accordingly: Yes Sedation:: Phenobarbital as needed; Haldol as needed Physical Exam Vital Signs: Temp Pulse Resp BP Pulse Ox 98.5 F 83 18 144/100 H 96 07/28/19 05:45 07/27/19 22:00 07/28/19 06:43 07/28/19 03:56 07/28/19 04:00 Intake & Output 07/27/19 07/28/19 07/29/19 06:59 06:59 06:59 Intake Total 4371 1425 Output Total 0 Balance 4371 1425 Weight 104.5 kg 104.1 kg Weight/Height Weight 104.1 kg Height 1.78 m General appearance: PRESENT: no acute distress, well-developed, well-nourished Head exam: PRESENT: atraumatic, normocephalic Mouth exam: PRESENT: laceration - Tongue (healing well), moist, tongue midline Neck exam: ABSENT: carotid bruit, JVD, lymphadenopathy, thyromegaly Respiratory exam: PRESENT: clear to auscultation karey. ABSENT: rales, rhonchi, wheezes Cardiovascular exam: PRESENT: RRR. ABSENT: diastolic murmur, rubs, systolic murmur Pulses: PRESENT: normal dorsalis pedis pul GI/Abdominal exam: PRESENT: normal bowel sounds, soft. ABSENT: distended, guarding, mass, organolmegaly, rebound, tenderness Extremities exam: PRESENT: full ROM. ABSENT: calf tenderness, clubbing, pedal edema Skin exam: PRESENT: dry, intact, warm. ABSENT: cyanosis, rash Laboratory/Radiographs Laboratory Results: 07/28/19 04:06 07/27/19 07:40 07/28/19 07/28/19 04:06 04:06 WBC 6.0 RBC 3.83 L Hgb 13.5 Hct 39.0 MCV 102 H MCH 35.2 H MCHC 34.6 RDW 18.6 H Plt Count 82 L Magnesium 2.0 Total Bilirubin 1.8 H AST 251 H Alkaline Phosphatase 49 Total Protein 6.5 Albumin 3.9 07/25/19 07/25/19 07/26/19 23:29 23:29 02:32 Creatine Kinase 666 H CK-MB (CK-2) 2.32 Troponin I < 0.012 0.031 Impressions: Head CT 07/26/19 00:39 IMPRESSION: No acute intracranial hemorrhage is seen. Cervical Spine CT 07/26/19 00:40 IMPRESSION: There are no findings to suggest an acute fracture or subluxation within the cervical spine. Abdomen/Pelvis CT 07/26/19 00:41 IMPRESSION: No acute process is seen within the abdomen or pelvis. Hepatic steatosis All labs, radiographs, diagnostic studies and EKGs were personally reviewed: Yes In addition, reports of radiographic and diagnostic studies were read: Yes Assessment and Plan - Diagnosis (1) Delirium tremens Is this a current diagnosis for this admission?: Yes Plan: Continue phenobarbital 130/260 mg IV every 30 minutes as needed. (2) Alcohol withdrawal seizure Qualifiers: Complication of substance-induced condition: with delirium Qualified Code(s): F10.231 - Alcohol dependence with withdrawal delirium Is this a current diagnosis for this admission?: Yes Plan: Seizure precautions. The patient has already received large doses of benzodiazepines and is currently on phenobarbital for alcohol withdrawal. No additional antiepileptic treatment is required at this time. (3) Thrombocytopenia Is this a current diagnosis for this admission?: Yes Plan: Monitor platelets (4) Macrocytosis without anemia Is this a current diagnosis for this admission?: Yes (5) Alcoholic hepatitis Qualifiers: Ascites presence: unspecified Qualified Code(s): K70.10 - Alcoholic hepatitis without ascites Is this a current diagnosis for this admission?: Yes Plan: Trend LFTs.. Critical Time Critical Time (minutes): 60 Level of Care: ICU -: 1. The care of a critical patient is a dynamic process. This note is a risk control field representative synopsis but static in nature. The timeframe for treatments given in order is not necessarily the actual time these treatments may have been done. 2. This patient requires critical care secondary to ongoing requirements for therapy not offered or safe outside the critical care environment. Transfer to a lower level of care will result in altered life or limb morbidity and mortality. 3. Multidisciplinary rounds completed. 4. ABCDE bundle addressed.
[2019-07-29] MEDS: HALOPERIDOL LACTATE INJ 5 MG/1 ML VIAL IV PRN ×2 (07:36→13:10)
[2019-07-29] MEDS: ATENOLOL 50 MG TABLET PO SCH ×2 (09:24→22:47)
[2019-07-29] MEDS: PANTOPRAZOLE SODIUM 40 MG VIAL IV SCH ×2 (09:24→22:47)
[2019-07-29] MEDS: ENOXAPARIN SODIUM INJ 40 MG/0.4 ML DISP.SYRIN SUBCUT SCH (09:24)
[2019-07-29] MEDS: HYDRALAZINE HCL INJ/PF 20 MG/1 ML SDV IV PRN (10:06)
[2019-07-29] MEDS: POTASSI CL 20 MEQ/D5NS 1L 20 MEQ/1,000 ML RTUINJ IV PRN (12:18)
--- NOTE | 2019-07-29 15:57 | PDOC CRITICAL CARE PROG REPORT ---
General Date:: 07/29/19 ICU Day:: 3 Hospital Day:: 5 Resuscitation Status: Full Code Events in the past 12 to 24 Hours:: 07/24: Presented to the emergency department after having seizure activity at home. Family reported that the patient demonstrated brief generalized tonic- clonic seizure activity, suspected to be related to alcohol withdrawal. 07/25: Admitted to the hospitalist service to a medical floor bed. Placed on CIWA protocol. 07/26: Transferred to ICU. Started on Precedex and phenobarbital. 07/27: Has received a total of 4 doses of phenobarbital thus far. Precedex is off. Nursing staff reports that the patient had a bout of agitation overnight, which was treated with Haldol. Currently, sleeping soundly. 07/28: Precedex is on. Continuing to load phenobarbital. Apparently did not need Haldol in the interim. Awake, reasonable interactions. Review of systems relevant to events:: Neurologic: Delirium tremens, alcohol withdrawal seizures Reason for ICU Addmission:: alcohol withdrawal; seizures - Medications: Medications reviewed and adjusted accordingly: Yes Sedation:: Phenobarbital as needed; Precedex as needed; Haldol as needed Physical Exam Vital Signs: Temp Pulse Resp BP Pulse Ox 97.4 F 77 11 L 150/99 H 99 07/29/19 05:49 07/28/19 19:59 07/29/19 06:00 07/29/19 05:56 07/29/19 06:00 Intake & Output 07/28/19 07/29/19 07/30/19 06:59 06:59 06:59 Intake Total 2448 2675 2 Output Total 0 200 Balance 2448 2475 2 Weight 104.1 kg 107.7 kg Weight/Height Weight 107.7 kg Height 1.78 m General appearance: PRESENT: no acute distress, well-developed, well-nourished Head exam: PRESENT: atraumatic, normocephalic Eye exam: PRESENT: conjunctiva pink, EOMI, PERRLA. ABSENT: scleral icterus Mouth exam: PRESENT: moist, tongue midline Respiratory exam: PRESENT: clear to auscultation karey. ABSENT: rales, rhonchi, wheezes Cardiovascular exam: PRESENT: RRR. ABSENT: diastolic murmur, rubs, systolic murmur Musculoskeletal exam: PRESENT: normal inspection. ABSENT: deformity Neurological exam: PRESENT: alert, awake, oriented to person, oriented to place, oriented to time, oriented to situation, CN II-XII grossly intact. ABSENT: motor sensory deficit Psychiatric exam: ABSENT: agitated, anxious, appropriate affect Skin exam: PRESENT: dry, intact, warm. ABSENT: cyanosis, rash Laboratory/Radiographs Laboratory Results: 07/29/19 04:18 07/27/19 07:40 07/29/19 07/29/19 04:18 04:18 WBC 4.9 RBC 3.70 L Hgb 13.3 L Hct 37.7 L MCV 102 H MCH 36.1 H MCHC 35.4 RDW 18.4 H Plt Count 100 L Magnesium 2.1 Total Bilirubin 1.4 H AST 243 H Alkaline Phosphatase 53 Total Protein 5.9 L Albumin 3.4 L 07/25/19 07/25/19 07/26/19 23:29 23:29 02:32 Creatine Kinase 666 H CK-MB (CK-2) 2.32 Troponin I < 0.012 0.031 Impressions: Head CT 07/26/19 00:39 IMPRESSION: No acute intracranial hemorrhage is seen. Cervical Spine CT 07/26/19 00:40 IMPRESSION: There are no findings to suggest an acute fracture or subluxation within the cervical spine. Abdomen/Pelvis CT 07/26/19 00:41 IMPRESSION: No acute process is seen within the abdomen or pelvis. Hepatic steatosis All labs, radiographs, diagnostic studies and EKGs were personally reviewed: Yes In addition, reports of radiographic and diagnostic studies were read: Yes Assessment and Plan - Diagnosis (1) Delirium tremens Is this a current diagnosis for this admission?: Yes Plan: Continue phenobarbital 130/260 mg IV every 30 minutes as needed. (2) Alcohol withdrawal seizure Qualifiers: Complication of substance-induced condition: with delirium Qualified Code(s): F10.231 - Alcohol dependence with withdrawal delirium Is this a current diagnosis for this admission?: Yes Plan: Seizure precautions. The patient has already received large doses of benzodiazepines and is currently on phenobarbital for alcohol withdrawal. No additional antiepileptic treatment is required at this time. (3) Thrombocytopenia Is this a current diagnosis for this admission?: Yes Plan: Improving. Monitor platelets (4) Macrocytosis without anemia Is this a current diagnosis for this admission?: Yes (5) Alcoholic hepatitis Qualifiers: Ascites presence: unspecified Qualified Code(s): K70.10 - Alcoholic hepatitis without ascites Is this a current diagnosis for this admission?: Yes Critical Time Critical Time (minutes): 60 Level of Care: ICU -: 1. The care of a critical patient is a dynamic process. This note is a field support representative synopsis but static in nature. The timeframe for treatments given in order is not necessarily the actual time these treatments may have been done. 2. This patient requires critical care secondary to ongoing requirements for therapy not offered or safe outside the critical care environment. Transfer to a lower level of care will result in altered life or limb morbidity and mortality. 3. Multidisciplinary rounds completed. 4. ABCDE bundle addressed.
[2019-07-29] MEDS: NORMAL SALINE 1000 ML 1,000 ML with POTASSIUM CHLORIDE 20 MEQ, MAGNESIUM SULFATE 8 MEQ,... IV SCH ×5 (19:42)
[2019-07-30] MEDS: PHENOBARBITAL INJ 65 MG/ML VIAL IV PRN ×10 (01:48→15:06)
[2019-07-30] MEDS: HALOPERIDOL LACTATE INJ 5 MG/1 ML VIAL IV PRN ×3 (01:48→17:04)
[2019-07-30 04:26] LABS: HEMATOCRIT 39.7 % (37.9-51.0); HEMOGLOBIN 13.9 g/dL (13.5-17.0); MEAN CORPUSCULAR HEMOGLOBIN 35.7 pg (27.0-33.4); MEAN CORPUSCULAR HGB CONC 35.1 g/dL (32.0-36.0); MEAN CORPUSCULAR VOLUME 102 fl (80-97); PLATELET COUNT 140 10^3/uL (150-450); RED CELL DISTRIBUTION WIDTH 18.7 % (11.5-14.0); WHITE BLOOD COUNT 4.7 10^3/uL (4.0-10.5)
[2019-07-30 04:44] LABS: ALBUMIN 3.8 g/dL (3.5-5.0); ALKALINE PHOSPHATASE 70 U/L (38-126); ANION GAP 9 (5-19); ASPARTATE AMINO TRANSFERASE 253 U/L (17-59); BILIRUBIN,DIRECT 0.4 mg/dL (0.0-0.4); BILIRUBIN,TOTAL 1.2 mg/dL (0.2-1.3); BLOOD UREA NITROGEN 6 mg/dL (7-20); CALCIUM 8.5 mg/dL (8.4-10.2); CARBON DIOXIDE 21 mmol/L (22-30); CHLORIDE 107 mmol/L (98-107); GLUCOSE 96 mg/dL (75-110); POTASSIUM 3.9 mmol/L (3.6-5.0)
[2019-07-30] MEDS: DEXMEDETOMIDINE IN 0.9 % NACL 400 MCG/100 ML RTUPB IV PRN (07:28)
[2019-07-30] MEDS: POTASSI CL 20 MEQ/D5NS 1L 20 MEQ/1,000 ML RTUINJ IV PRN (08:29)
[2019-07-30] MEDS: PANTOPRAZOLE SODIUM 40 MG VIAL IV SCH ×2 (09:48→21:49)
[2019-07-30] MEDS: ENOXAPARIN SODIUM INJ 40 MG/0.4 ML DISP.SYRIN SUBCUT SCH (09:49)
[2019-07-30] MEDS: ATENOLOL 50 MG TABLET PO SCH ×2 (10:05→21:50)
--- NOTE | 2019-07-30 16:04 | PDOC CRITICAL CARE PROG REPORT ---
General Date:: 07/30/19 ICU Day:: 4 Hospital Day:: 6 Resuscitation Status: Full Code Events in the past 12 to 24 Hours:: 07/24: Presented to the emergency department after having seizure activity at home. Family reported that the patient demonstrated brief generalized tonic- clonic seizure activity, suspected to be related to alcohol withdrawal. 07/25: Admitted to the hospitalist service to a medical floor bed. Placed on CIWA protocol. 07/26: Transferred to ICU. Started on Precedex and phenobarbital. 07/27: Has received a total of 4 doses of phenobarbital thus far. Precedex is off. Nursing staff reports that the patient had a bout of agitation overnight, which was treated with Haldol. Currently, sleeping soundly. 07/28: Precedex is on. Continuing to load phenobarbital. Apparently did not need Haldol in the interim. Awake, reasonable interactions. 07/29: Precedex is at 0.2 mcg/kg/h. Still getting intermittent doses of phenobarbital and Haldol. Currently, sleeping comfortably. DVT PROPHYLAXIS: Lovenox. GI PROPHYLAXIS: Protonix. Review of systems relevant to events:: Neurologic: Delirium tremens, alcohol withdrawal seizures Reason for ICU Addmission:: alcohol withdrawal; seizures - Medications: Medications reviewed and adjusted accordingly: Yes Sedation:: Phenobarbital as needed; Precedex at 0.2 mcg/kg/h; Haldol as needed Physical Exam Vital Signs: Temp Pulse Resp BP Pulse Ox 99.3 F 84 14 136/85 H 97 07/30/19 08:00 07/30/19 10:00 07/30/19 10:04 07/30/19 10:04 07/30/19 10:04 Intake & Output 07/29/19 07/30/19 07/31/19 06:59 06:59 06:59 Intake Total 2675 1192 1020 Output Total 200 40 Balance 2475 1152 1020 Weight 107.7 kg 104.5 kg Weight/Height Weight 104.5 kg Height 1.78 m General appearance: PRESENT: no acute distress, well-developed, well-nourished Head exam: PRESENT: atraumatic, normocephalic Eye exam: PRESENT: conjunctiva pink, EOMI, PERRLA. ABSENT: scleral icterus Neck exam: ABSENT: carotid bruit, JVD, lymphadenopathy, thyromegaly Respiratory exam: PRESENT: clear to auscultation karey. ABSENT: rales, rhonchi, wheezes Cardiovascular exam: PRESENT: RRR. ABSENT: diastolic murmur, rubs, systolic murmur Vascular exam: PRESENT: normal capillary refill GI/Abdominal exam: PRESENT: normal bowel sounds, soft. ABSENT: distended, guarding, mass, organolmegaly, rebound, tenderness Extremities exam: PRESENT: full ROM. ABSENT: calf tenderness, clubbing, pedal edema Neurological exam: PRESENT: altered, oriented to person, CN II-XII grossly intact. ABSENT: oriented to place, oriented to time, oriented to situation, motor sensory deficit Focused psych exam: PRESENT: psychomotor agitation Skin exam: PRESENT: dry, intact, warm. ABSENT: cyanosis, rash Laboratory/Radiographs Laboratory Results: 07/30/19 03:56 07/30/19 03:56 07/30/19 07/30/19 03:56 03:56 WBC 4.7 RBC 3.90 L Hgb 13.9 Hct 39.7 MCV 102 H MCH 35.7 H MCHC 35.1 RDW 18.7 H Plt Count 140 L Sodium 137.3 Potassium 3.9 Chloride 107 Carbon Dioxide 21 L Anion Gap 9 BUN 6 L Creatinine 0.66 Est GFR ( Amer) > 60 Glucose 96 Calcium 8.5 Total Bilirubin 1.2 AST 253 H Alkaline Phosphatase 70 Total Protein 7.0 Albumin 3.8 07/25/19 07/25/19 07/26/19 23:29 23:29 02:32 Creatine Kinase 666 H CK-MB (CK-2) 2.32 Troponin I < 0.012 0.031 Impressions: Head CT 07/26/19 00:39 IMPRESSION: No acute intracranial hemorrhage is seen. Cervical Spine CT 07/26/19 00:40 IMPRESSION: There are no findings to suggest an acute fracture or subluxation within the cervical spine. Abdomen/Pelvis CT 07/26/19 00:41 IMPRESSION: No acute process is seen within the abdomen or pelvis. Hepatic steatosis All labs, radiographs, diagnostic studies and EKGs were personally reviewed: Yes In addition, reports of radiographic and diagnostic studies were read: Yes Assessment and Plan - Diagnosis (1) Delirium tremens Is this a current diagnosis for this admission?: Yes Plan: Making steady progress. Wean Precedex as tolerated. Continue phenobarbital 130/260 mg IV every 30 minutes as needed. (2) Alcohol withdrawal seizure Qualifiers: Complication of substance-induced condition: with delirium Qualified Code(s): F10.231 - Alcohol dependence with withdrawal delirium Is this a current diagnosis for this admission?: Yes Plan: Seizure precautions. No seizure activity observed. The patient has already received large doses of benzodiazepines and is currently on phenobarbital for alcohol withdrawal. No additional antiepileptic treatment is required at this time. (3) Thrombocytopenia Is this a current diagnosis for this admission?: Yes (4) Macrocytosis without anemia Is this a current diagnosis for this admission?: Yes (5) Alcoholic hepatitis Qualifiers: Ascites presence: unspecified Qualified Code(s): K70.10 - Alcoholic hepatitis without ascites Is this a current diagnosis for this admission?: Yes Critical Time Critical Time (minutes): 60 Level of Care: ICU -: 1. The care of a critical patient is a dynamic process. This note is a player services representative synopsis but static in nature. The timeframe for treatments given in order is not necessarily the actual time these treatments may have been done. 2. This patient requires critical care secondary to ongoing requirements for therapy not offered or safe outside the critical care environment. Transfer to a lower level of care will result in altered life or limb morbidity and mortality. 3. Multidisciplinary rounds completed. 4. ABCDE bundle addressed.
[2019-07-30] MEDS: NORMAL SALINE 1000 ML 1,000 ML with POTASSIUM CHLORIDE 20 MEQ, MAGNESIUM SULFATE 8 MEQ,... IV SCH ×5 (17:18)
[2019-07-31] MEDS: POTASSI CL 20 MEQ/D5NS 1L 20 MEQ/1,000 ML RTUINJ IV PRN ×2 (04:41→18:40)
[2019-07-31 04:58] LABS: ALBUMIN 3.7 g/dL (3.5-5.0); ALKALINE PHOSPHATASE 70 U/L (38-126); ANION GAP 10 (5-19); ASPARTATE AMINO TRANSFERASE 197 U/L (17-59); BILIRUBIN,DIRECT 0.3 mg/dL (0.0-0.4); BILIRUBIN,TOTAL 0.9 mg/dL (0.2-1.3); BLOOD UREA NITROGEN 3 mg/dL (7-20); CALCIUM 8.6 mg/dL (8.4-10.2); CARBON DIOXIDE 23 mmol/L (22-30); CHLORIDE 103 mmol/L (98-107); GLUCOSE 102 mg/dL (75-110); POTASSIUM 3.6 mmol/L (3.6-5.0); TOTAL PROTEIN 6.8 g/dL (6.3-8.2)
[2019-07-31] MEDS: PHENOBARBITAL INJ 65 MG/ML VIAL IV PRN ×2 (08:26→13:39)
[2019-07-31] MEDS: ENOXAPARIN SODIUM INJ 40 MG/0.4 ML DISP.SYRIN SUBCUT SCH (11:28)
[2019-07-31] MEDS: PANTOPRAZOLE SODIUM 40 MG VIAL IV SCH ×2 (11:28→21:47)
[2019-07-31] MEDS: POTASSI CL 20 MEQ/50 ML RIDER 20 MEQ/50 ML RTUPB IV SCH ×2 (11:29→13:38)
[2019-07-31] MEDS: ATENOLOL 50 MG TABLET PO SCH ×2 (11:29→21:48)
--- NOTE | 2019-07-31 16:39 | PDOC CRITICAL CARE PROG REPORT ---
General Date:: 07/31/19 ICU Day:: 5 Hospital Day:: 7 Resuscitation Status: Full Code Events in the past 12 to 24 Hours:: 07/24: Presented to the emergency department after having seizure activity at home. Family reported that the patient demonstrated brief generalized tonic- clonic seizure activity, suspected to be related to alcohol withdrawal. 07/25: Admitted to the hospitalist service to a medical floor bed. Placed on CIWA protocol. 07/26: Transferred to ICU. Started on Precedex and phenobarbital. 07/27: Has received a total of 4 doses of phenobarbital thus far. Precedex is off. Nursing staff reports that the patient had a bout of agitation overnight, which was treated with Haldol. Currently, sleeping soundly. 07/28: Precedex is on. Continuing to load phenobarbital. Apparently did not need Haldol in the interim. Awake, reasonable interactions. 07/29: Precedex is at 0.2 mcg/kg/h. Still getting intermittent doses of phenobarbital and Haldol. Currently, sleeping comfortably. DVT PROPHYLAXIS: Lovenox. GI PROPHYLAXIS: Protonix. 07/30: Precedex is off. Still getting intermittent doses of phenobarbital and Haldol. Currently, sleeping comfortably. Review of systems relevant to events:: Neurologic: Delirium tremens, alcohol withdrawal seizures Reason for ICU Addmission:: alcohol withdrawal; seizures - Medications: Sedation:: Phenobarbital as needed; Haldol as needed Physical Exam Vital Signs: Temp Pulse Resp BP Pulse Ox 99.8 F 98 25 H 168/110 H 98 07/31/19 03:35 07/30/19 19:23 07/31/19 10:00 07/31/19 09:58 07/31/19 10:00 Intake & Output 07/30/19 07/31/19 08/01/19 06:59 06:59 06:59 Intake Total 2214 2025 Output Total 40 0 Balance 2174 2025 Weight 104.5 kg 107.8 kg Weight/Height Weight 107.8 kg Height 1.78 m General appearance: PRESENT: no acute distress, well-developed, well-nourished Head exam: PRESENT: atraumatic, normocephalic Eye exam: PRESENT: conjunctiva pink, EOMI, PERRLA. ABSENT: scleral icterus Mouth exam: PRESENT: moist, tongue midline Neck exam: ABSENT: carotid bruit, JVD, lymphadenopathy, thyromegaly Respiratory exam: PRESENT: clear to auscultation karey. ABSENT: rales, rhonchi, wheezes Cardiovascular exam: PRESENT: RRR. ABSENT: diastolic murmur, rubs, systolic murmur GI/Abdominal exam: PRESENT: normal bowel sounds, soft. ABSENT: distended, guarding, mass, organolmegaly, rebound, tenderness Extremities exam: PRESENT: full ROM. ABSENT: calf tenderness, clubbing, pedal edema Neurological exam: PRESENT: altered, oriented to person, CN II-XII grossly intact. ABSENT: oriented to place, oriented to time, oriented to situation, motor sensory deficit Skin exam: PRESENT: dry, intact, warm. ABSENT: cyanosis, rash Laboratory/Radiographs Laboratory Results: 07/30/19 03:56 07/31/19 04:16 07/31/19 04:16 Sodium 135.6 L Potassium 3.6 Chloride 103 Carbon Dioxide 23 Anion Gap 10 BUN 3 L Creatinine 0.62 Est GFR ( Amer) > 60 Glucose 102 Calcium 8.6 Total Bilirubin 0.9 AST 197 H Alkaline Phosphatase 70 Total Protein 6.8 Albumin 3.7 07/25/19 07/25/19 07/26/19 23:29 23:29 02:32 Creatine Kinase 666 H CK-MB (CK-2) 2.32 Troponin I < 0.012 0.031 Impressions: Head CT 07/26/19 00:39 IMPRESSION: No acute intracranial hemorrhage is seen. Cervical Spine CT 07/26/19 00:40 IMPRESSION: There are no findings to suggest an acute fracture or subluxation within the cervical spine. Abdomen/Pelvis CT 07/26/19 00:41 IMPRESSION: No acute process is seen within the abdomen or pelvis. Hepatic steatosis All labs, radiographs, diagnostic studies and EKGs were personally reviewed: Yes In addition, reports of radiographic and diagnostic studies were read: Yes Assessment and Plan - Diagnosis (1) Delirium tremens Is this a current diagnosis for this admission?: Yes Plan: Making steady progress. Bedside speech/swallow evaluation. If the patient is able to take p.o. medications, he should be able to transfer out to the floor. Continue phenobarbital 130/260 mg IV or p.o. every 30 minutes as needed. (2) Alcohol withdrawal seizure Qualifiers: Complication of substance-induced condition: with delirium Qualified Code(s): F10.231 - Alcohol dependence with withdrawal delirium Is this a current diagnosis for this admission?: Yes (3) Thrombocytopenia Is this a current diagnosis for this admission?: Yes Plan: Improving. (4) Macrocytosis without anemia Is this a current diagnosis for this admission?: Yes (5) Alcoholic hepatitis Qualifiers: Ascites presence: unspecified Qualified Code(s): K70.10 - Alcoholic hepatitis without ascites Is this a current diagnosis for this admission?: Yes Critical Time Critical Time (minutes): 45 Level of Care: ICU -: 1. The care of a critical patient is a dynamic process. This note is a customer engagement representative synopsis but static in nature. The timeframe for treatments give n in order is not necessarily the actual time these treatments may have been done. 2. This patient requires critical care secondary to ongoing requirements for therapy not offered or safe outside the critical care environment. Transfer to a lower level of care will result in altered life or limb morbidity and mortality. 3. Multidisciplinary rounds completed. 4. ABCDE bundle addressed.
[2019-07-31] MEDS: HYDRALAZINE HCL INJ/PF 20 MG/1 ML SDV IV PRN (21:53)
[2019-08-01 04:43] LABS: ANION GAP 9 (5-19); BLOOD UREA NITROGEN 5 mg/dL (7-20); CALCIUM 8.7 mg/dL (8.4-10.2); CARBON DIOXIDE 25 mmol/L (22-30); CHLORIDE 101 mmol/L (98-107); GLUCOSE 113 mg/dL (75-110); POTASSIUM 3.5 mmol/L (3.6-5.0)
--- NOTE | 2019-08-01 09:03 | PDOC CRITICAL CARE PROG REPORT ---
General Date:: 08/01/19 ICU Day:: 6 Hospital Day:: 8 Resuscitation Status: Full Code Events in the past 12 to 24 Hours:: 07/24: Presented to the emergency department after having seizure activity at home. Family reported that the patient demonstrated brief generalized tonic- clonic seizure activity, suspected to be related to alcohol withdrawal. 07/25: Admitted to the hospitalist service to a medical floor bed. Placed on CIWA protocol. 07/26: Transferred to ICU. Started on Precedex and phenobarbital. 07/27: Has received a total of 4 doses of phenobarbital thus far. Precedex is off. Nursing staff reports that the patient had a bout of agitation overnight, which was treated with Haldol. Currently, sleeping soundly. 07/28: Precedex is on. Continuing to load phenobarbital. Apparently did not need Haldol in the interim. Awake, reasonable interactions. 07/29: Precedex is at 0.2 mcg/kg/h. Still getting intermittent doses of phenobarbital and Haldol. Currently, sleeping comfortably. DVT PROPHYLAXIS: Lovenox. GI PROPHYLAXIS: Protonix. 07/30: Precedex is off. Still getting intermittent doses of phenobarbital and Haldol. Currently, sleeping comfortably. 07/31: Awake. Oriented to time, person and place. Verbally combative. Of note, the patient's reports that this is consistent with his baseline behavior. Phenobarbital level this morning was checked and found to be supratherapeutic. Review of systems relevant to events:: Neurologic: Delirium tremens, alcohol withdrawal seizures Reason for ICU Addmission:: alcohol withdrawal; seizures - Medications: Medications reviewed and adjusted accordingly: Yes Sedation:: Phenobarbital as needed; Haldol as needed Physical Exam Vital Signs: Temp Pulse Resp BP Pulse Ox 99.5 F 107 H 21 H 161/101 H 96 08/01/19 03:39 07/31/19 19:44 08/01/19 06:00 08/01/19 05:59 08/01/19 06:00 Intake & Output 07/31/19 08/01/19 08/02/19 06:59 06:59 06:59 Intake Total 2025 74 Output Total 0 Balance 2025 74 Weight 107.8 kg 106.5 kg Weight/Height Weight 106.5 kg Height 1.78 m General appearance: PRESENT: no acute distress, well-developed, well-nourished Head exam: PRESENT: atraumatic, normocephalic Mouth exam: PRESENT: moist, tongue midline Neck exam: ABSENT: carotid bruit, JVD, lymphadenopathy, thyromegaly Respiratory exam: PRESENT: clear to auscultation karey. ABSENT: rales, rhonchi, wheezes Cardiovascular exam: PRESENT: RRR. ABSENT: diastolic murmur, rubs, systolic murmur Pulses: PRESENT: normal dorsalis pedis pul GI/Abdominal exam: PRESENT: normal bowel sounds, soft. ABSENT: distended, guarding, mass, organolmegaly, rebound, tenderness Extremities exam: PRESENT: full ROM. ABSENT: calf tenderness, clubbing, pedal edema Musculoskeletal exam: PRESENT: full ROM, normal inspection. ABSENT: deformity Neurological exam: PRESENT: alert, awake, oriented to person, oriented to place, oriented to time, oriented to situation, CN II-XII grossly intact. ABSENT: mot or sensory deficit Laboratory/Radiographs Laboratory Results: 07/30/19 03:56 08/01/19 03:51 08/01/19 03:51 Sodium 135.3 L Potassium 3.5 L Chloride 101 Carbon Dioxide 25 Anion Gap 9 BUN 5 L Creatinine 0.66 Est GFR ( Amer) > 60 Glucose 113 H Calcium 8.7 07/25/19 07/25/19 07/26/19 23:29 23:29 02:32 Creatine Kinase 666 H CK-MB (CK-2) 2.32 Troponin I < 0.012 0.031 Impressions: Head CT 07/26/19 00:39 IMPRESSION: No acute intracranial hemorrhage is seen. Cervical Spine CT 07/26/19 00:40 IMPRESSION: There are no findings to suggest an acute fracture or subluxation within the cervical spine. Abdomen/Pelvis CT 07/26/19 00:41 IMPRESSION: No acute process is seen within the abdomen or pelvis. Hepatic steatosis All labs, radiographs, diagnostic studies and EKGs were personally reviewed: Yes In addition, reports of radiographic and diagnostic studies were read: Yes Assessment and Plan - Diagnosis (1) Delirium tremens Is this a current diagnosis for this admission?: Yes Plan: Making steady progress. Okay to transfer to the floor. Bedside speech/swallow evaluation. Stop phenobarbital. (2) Alcohol withdrawal seizure Qualifiers: Complication of substance-induced condition: with delirium Qualified Code(s): F10.231 - Alcohol dependence with withdrawal delirium Is this a current diagnosis for this admission?: Yes Plan: Seizure precautions. No seizure activity observed. The patient has already received large doses of benzodiazepines and phenobarbital for alcohol withdrawal. No additional antiepileptic treatment is required at this time. (3) Thrombocytopenia Is this a current diagnosis for this admission?: Yes (4) Macrocytosis without anemia Is this a current diagnosis for this admission?: Yes (5) Alcoholic hepatitis Qualifiers: Ascites presence: unspecified Qualified Code(s): K70.10 - Alcoholic hepatitis without ascites Is this a current diagnosis for this admission?: Yes Plan: CMP in a.m. Critical Time Critical Time (minutes): 45 Level of Care: ICU -: 1. The care of a critical patient is a dynamic process. This note is a call center support representative synopsis but static in nature. The timeframe for treatments given in order is not necessarily the actual time these treatments may have been done. 2. This patient requires critical care secondary to ongoing requirements for therapy not offered or safe outside the critical care environment. Transfer to a lower level of care will result in altered life or limb morbidity and mortality. 3. Multidisciplinary rounds completed. 4. ABCDE bundle addressed.
[2019-08-01] MEDS ORDERED: HALOPERIDOL LACTATE INJ 5 MG/1 ML VIAL IV PRN (10:17)
[2019-08-01] MEDS: ATENOLOL 50 MG TABLET PO SCH ×2 (10:39→22:15)
[2019-08-01] MEDS: PANTOPRAZOLE SODIUM 40 MG VIAL IV SCH ×2 (10:39→22:15)
[2019-08-01] MEDS: MORPHINE SULFATE 10 MG/ML INJ IV PRN ×2 (10:39→16:33)
[2019-08-01] MEDS: ENOXAPARIN SODIUM INJ 40 MG/0.4 ML DISP.SYRIN SUBCUT SCH (11:00)
[2019-08-01] MEDS ORDERED: MORPHINE SULFATE 10 MG/ML INJ IV PRN (17:40)
--- NOTE | 2019-08-01 18:10 | Progress Note ---
Provider Note Provider Note: Patient is a 48-year-old male with a past medical history significant for alcohol dependence who was admitted 07/26/19 for witnessed tonic-clonic seizures (by EMS and ED personnel) related to rapid reduction in his daily alcohol intake. At baseline, patient drinks 1 bottle of rum daily and over the last several days it had reduced to 2 to 3 cups only with the last drink approximately 4 hours prior to his arrival. EtOH on admission was 31. He was admitted 07/26/19 to IMCU. Upgraded to ICU on 07/27/19 where he was provided Versed and Phenobarbital while going through acute withdrawals. He is downgraded on 08/01/19 to the medical floor on telemetry. He has not required benzodiazepines for >24 hrs. H&P, Progress notes, Vital signs, Lab/Imaging results, Nursing notes, and Orders reviewed. Agree with patient being stable for floor status and with the plan of care as established by the previous provider. Per Dr. Benedict, patient has reported that he is on narcotic medications for chronic back pain. Review of the [place] Controlled Substance Database did not yield results/prescriptions over the last year. Will need to verify this with his pharmacy. Will continue weaning Morphine as has already been initiated while in the ICU. In addition, have placed a Speech Therapy consult as nursing notes report that the patient is not safe to swallow and frequently has to clear his throat.
[2019-08-01] MEDS: POTASSI CL 20 MEQ/D5NS 1L 20 MEQ/1,000 ML RTUINJ IV PRN (23:43)
[2019-08-02 07:24] LABS: ALBUMIN 3.7 g/dL (3.5-5.0); ALKALINE PHOSPHATASE 66 U/L (38-126); ANION GAP 11 (5-19); ASPARTATE AMINO TRANSFERASE 74 U/L (17-59); BILIRUBIN,DIRECT 0.2 mg/dL (0.0-0.4); BILIRUBIN,TOTAL 0.9 mg/dL (0.2-1.3); BLOOD UREA NITROGEN 12 mg/dL (7-20); CALCIUM 9.3 mg/dL (8.4-10.2); CARBON DIOXIDE 24 mmol/L (22-30); CHLORIDE 100 mmol/L (98-107); GLUCOSE 85 mg/dL (75-110); POTASSIUM 4.3 mmol/L (3.6-5.0); TOTAL PROTEIN 6.8 g/dL (6.3-8.2)
[2019-08-02] MEDS ORDERED: POTASSI CL 20 MEQ/D5NS 1L 20 MEQ/1,000 ML RTUINJ IV PRN (07:51)
[2019-08-02 08:11] VITALS: BP 146/87
[2019-08-02] MEDS ORDERED: DIVALPROEX SODIUM 250 MG TABLET.DR PO SCH (10:00)
[2019-08-02] MEDS: PANTOPRAZOLE SODIUM 40 MG VIAL IV SCH (10:30)
[2019-08-02] MEDS: ATENOLOL 50 MG TABLET PO SCH (10:31)
--- NOTE | 2019-08-02 11:46 | Left Against Medical Advice ---
Against Medical Advice Admission Date/Time: 07/26/19 04:25 Primary Care Provider: Date of Patient Emigration: 08/02/19 - Diagnosis: (1) Alcohol withdrawal seizure Is this a current diagnosis for this admission?: Yes (2) Alcoholic hepatitis Is this a current diagnosis for this admission?: Yes (3) Abrasion of tongue Is this a current diagnosis for this admission?: Yes (4) Fever Is this a current diagnosis for this admission?: Yes (5) Substance abuse Is this a current diagnosis for this admission?: Yes - Summary: Summary: Please see Admission and Progress Notes as well. EVIE SEGURA is a 48 M, who LEFT AGAINST MEDICAL ADVICE. The Patient was admitted on 07/26/19 04:25. Per H&P: EVIE SEGURA is a 48 year old male presented to the emergency room via EMS with acute tonic-clonic seizures. Patient is aware that he had a seizure but does not remember the seizure activity only waking up with a sore tongue and feeling tremulous. He reports that he has a long history of alcoholism and has been trying to cut back on his drinking. He denies prior similar symptoms. He denies other associated or accompanying signs and symptoms. He was witnessed to have a full body tonic-clonic seizure that lasted 45 to 60 seconds at home prior to his family summoning EMS. He has not identified any additional aggravating or ameliorating factors for his seizures. Patient had another seizure lasting less than 2 minutes in the emergency room that was witnessed by physician and nursing staff. Patient seizures have been well controlled by intravenous Valium. Patient was subsequently admitted to the hospital for further evaluation and treatment. Course: Patient is a 48-year-old male with a past medical history significant for alcohol dependence who was admitted 07/26/19 for witnessed tonic-clonic seizures (by EMS and ED personnel) related to rapid reduction in his daily alcohol intake. At baseline, patient drinks 1 bottle of rum daily and over the last several days it had reduced to 2 to 3 cups only with the last drink approximately 4 hours prior to his arrival. EtOH on admission was 31. He was admitted 07/26/19 to IMCU. Upgraded to ICU on 07/27/19 where he was provided Versed and Phenobarbital while going through acute withdrawal. He is downgraded on 08/01/19 to the medical floor on telemetry. He has not required benzodiazepines for >24 hrs. Overnight (07/31 - 08/01), the patient informed the nursing staff that he intended to leave against medical advice. Due to patient anxiety/agitation, he was offered PRN medications; patient adamantly declined medications and removed his IV. Nursing contacted the Business Management Intern, who confirmed that he was not IVC'd and so did note recommend prevention of the patient emigration. Unfortunately, the patient was subsequently placed in restraints. This morning, the patient was seen after evaluation by physical therapy (stood w/ minimum assist using FWW and ambulated ~25 feet, though with poor core strength/balance). This morning he is A&Ox4 and, understandably, upset by overnight events. He states that he intends to leave AGAINST MEDICAL ADVICE today. He is encouraged to reconsider and asked to speak with his family prior to signing AMA paperwork and removing his IV, which he agrees to do. After speaking with his , the patient elects to leave AGAINST MEDICAL ADVICE. I briefly spoke with his by phone; Atenolol Rx has been sent to their pharmacy of choice. They are encouraged to return to the emergency department for any concerning symptoms.
[2019-08-02] MEDS ORDERED: THIAMINE HCL 100 MG, FOLIC ACID 1 MG in NORMAL SALINE 250 ML IV ONE (12:00)
== END 2019-08-02 11:24 | disposition left against medical advice (07) | DRG 894 ==
LOC: ER 22:56 → EH 07-26 04:25 → 3N 07-26 05:49 → ICU 07-27 16:01 → 4N 08-01 20:02
PROVIDERS: ADMIT Emergency Medicine; ATTEND Registered Nurse
DX: F10.231 Alcohol dependence with withdrawal delirium (principal); G40.509 Epileptic seizures related to external causes, not intractable, without status epilepticus; K70.10 Alcoholic hepatitis without ascites; F12.90 Cannabis use, unspecified, uncomplicated; D69.59 Other secondary thrombocytopenia; D75.89 Other specified diseases of blood and blood-forming organs; S00.532A Contusion of oral cavity, initial encounter; X58.XXXA Exposure to other specified factors, initial encounter; Y90.1 Blood alcohol level of 20-39 mg/100 ml; Y93.89 Activity, other specified; Y92.010 Kitchen of single-family (private) house as the place of occurrence of the external cause; Z78.1 Physical restraint status
CPT/HCPCS: 36415; 70450; 71045; 72125; 74177; 80048; 80053; 80076; 80184; 80307; 81001; 82550; 82553; 82962; 83735; 84100; 84484; 85025; 85027; 93005; 93010; 96361; 96374; 96375; 96376; 99285; 99291; C9113; J0360; J1630; J1650; J2060; J2270; J2405; J2560; J3360; J3411; J3475; J3480; J3490; J7030; J7120